=== PATIENT | male | born 1995 ===

== ENCOUNTER 2024-03-11 20:46 | Emergency (ER) | payer OTHER ==
[~2024-03-11] VITALS: Ht 167.6 cm; Wt 74.0 kg
[~2024-03-11 20:46] MED LIST: CLINDAMYCIN150 MG PO; ENGERIX-B10 MG/0.5 IM; FLORASTOR250 M1 PO; ROCEPHIN 1 GM1 GM IM
[2024-03-11] MEDS ORDERED: DICLOFENAC SODIUM 75 MG/TAB PO ONE (21:10)
[2024-03-11] MEDS ORDERED: ACETAMINOPHEN 500 MG TAB PO ONE (21:10)
[2024-03-11 21:25] LABS: BASO% 0.4 % (0-3); EOS% 1.3 % (0-8); HEMATOCRIT 45.1 % (39.0-50.0); HEMOGLOBIN 15.1 g/dl (14.0-18.0); IMMATURE GRANULOCYTES 0.6 % (0.0-5.0); LYMPH% 20.1 % (15-41); MEAN CELL VOLUME 92.2 fL CALC (80.0-100.0); MEAN CORPUSCULAR HGB 30.9 pG CALC (26.0-32.0); MEAN CORPUSCULAR HGB CONC 33.5 g/dL CAL (32.0-36.0); MONO% 5.9 % (2-13); NEUT# 8.45 thou/uL (1.82-7.42); NEUT% 71.7 % (42-76); RED BLOOD COUNT 4.89 mill/uL (4.70-6.10); RED CELL DISTRI WIDTH 12.4 % (11.5-15.5)
[2024-03-11 21:36] LABS: ALBUMIN 4.1 g/dL (3.2-5.0); BILIRUBIN, TOTAL 0.3 mg/dL (0.2-1.3); CREATININE 0.9 mg/dL (0.7-1.3); POTASSIUM 3.9 mmol/l (3.5-5.1); TOTAL PROTEIN 6.8 g/dL (6.3-8.2)
[2024-03-11 22:27] LABS: URINE BILIRUBIN - DIPSTICK Negative (NEGATIVE); URINE BLOOD DIPSTICK Trace-intact (NEGATIVE); URINE CLARITY Clear; URINE COLOR Yellow; URINE GLUCOSE - DIPSTICK Negative (NEGATIVE); URINE KETONE Trace mg/dL (NEGATIVE); URINE LEUK ESTERASE Negative (Negative); URINE NITRITE - DIPSTICK Negative (Negative); URINE PH 6.5 (4.5-8.0); URINE PROTEIN - DIPSTICK Trace mg/dL (NEG-TRACE); URINE SPECIFIC GRAVITY 1.025; URINE UROBILINOGEN - DIPSTICK 0.2 E.U./dL (0.2)
[2024-03-11] MEDS ORDERED: AMOXICILLIN TRIHYDRATE 500 MG/CAP PO ONE (22:40)
[2024-03-11] MEDS ORDERED: AMOXICILLIN500 MG PO (22:42)
[2024-03-11 22:49] VITALS: BP 126/78
== END 2024-03-11 22:52 | disposition home or self-care (01) | DRG 999 ==
LOC: ED 20:46
PROVIDERS: Family Medicine
DX: S02.32XA Fracture of orbital floor, left side, initial encounter for closed fracture (principal); S02.40DA Maxillary fracture, left side, initial encounter for closed fracture; S00.81XA Abrasion of other part of head, initial encounter; S00.212A Abrasion of left eyelid and periocular area, initial encounter; S70.212A Abrasion, left hip, initial encounter; V49.50XA Passenger injured in collision with unspecified motor vehicles in traffic accident, initial encounter; F15.10 Other stimulant abuse, uncomplicated